=== PATIENT | male | born 1960 | race Caucasian/White ===

== ENCOUNTER → 2024-10-31 10:58 | Outpatient (CLI) | payer OTHER, SELFPAY ==
[2024-10-31 18:53] LABS: Alanine Aminotransferase 54 IU/L (<50); Albumin 5.3 g/dL (3.5-5.0); Albumin Globulin Ratio 1.6 (1.0-2.8); Alkaline Phosphatase 62 U/L (38-126); Aspartate Aminotransferase 42 IU/L (17-59); BUN Creatinine Ratio 21.2 (6-22); Bilirubin Total 2.7 mg/dL (0.2-1.3); Blood Urea Nitrogen 21 mg/dL (9-20); Calcium 10.6 mg/dL (8.4-10.2); Carbon Dioxide 16 mmol/L (22-32); Chloride 104 mmol/L (98-107); Cholesterol 294 mg/dL (140-199); Estimated Glomerular Filt Rate > 60 mL/min (>60); Globulin 3.4 g/dL (1.7-4.1); Glucose 112 mg/dL (70-99); HDL Cholesterol 28 mg/dL (40-60); HEMOLYSIS 21 (0-50); LDL Cholesterol Calculated 234 mg/dL (<100); Potassium 4.8 mmol/L (3.4-5.1); Sodium 138 mmol/L (137-145); Total Protein 8.7 g/dL (6.3-8.2); Triglycerides 159 mg/dL (35-150)
[2024-10-31 18:58] LABS: Add Manual Diff / Slide Review YES; Hematocrit 55.1 % (41-53); Hemoglobin 19.3 g/dL (13.5-17.5); Mean Corpuscular Hemoglobin 30.1 PG (26-34); Platelet Count 350 X10^3/uL (150-400); Red Cell Distribution Width 13.7 % (11.6-14.8); White Blood Cell Count 13.9 X10^3/uL (4.5-11.0)
[2024-10-31 19:05] LABS: Hemoglobin A1C% w Est Avg Glu 5.4 % (4.0-6.0)
[2024-10-31 19:52] LABS: Neutrophils Absolute Manual 9035 /uL (3000-5900); Total Cells Counted 100
[2024-10-31 19:53] LABS: RBC Morphology Normal Morphology
== END ==
PROVIDERS: PCP Family Medicine; Visit Provider Family Medicine
DX: I25.10 Atherosclerotic heart disease of native coronary artery without angina pectoris (principal); I25.2 Old myocardial infarction; I10 Essential (primary) hypertension; Z95.5 Presence of coronary angioplasty implant and graft
CPT/HCPCS: 80053; 80061; 83036; 84443; 85007; 85025

== ENCOUNTER → 2024-11-26 11:51 | Outpatient (CLI) | payer OTHER, SELFPAY ==
[2024-11-26 19:33] LABS: Hematocrit 47.8 % (41-53); Hemoglobin 16.7 g/dL (13.5-17.5); Mean Corpuscular HGB Conc 34.9 % (30-36); Mean Corpuscular Hemoglobin 29.5 PG (26-34); Mean Corpuscular Volume 84.3 fL (80-100); Platelet Count 290 X10^3/uL (150-400)
[2024-11-26 19:41] LABS: HEMOLYSIS < 15 (0-50); Iron 160 ug/dL (49-181)
[2024-11-26 19:43] LABS: Alanine Aminotransferase 58 IU/L (<50); Albumin 4.8 g/dL (3.5-5.0); Albumin Globulin Ratio 1.5 (1.0-2.8); Alkaline Phosphatase 62 U/L (38-126); Globulin 3.1 g/dL (1.7-4.1); HEMOLYSIS < 15 (0-50); Total Protein 7.9 g/dL (6.3-8.2)
[2024-11-26 19:52] LABS: Band Neutrophils Percent 1.0 % (3-7); Basophils Percent Manual 1.0 % (0-1); Eosinophils Percent Manual 10.0 % (2-4); Lymphocytes Percent Manual 31.0 % (25-45); Monocytes Percent Manual 9.0 % (2-11); Neutrophils Absolute Manual 5096 /uL (3000-5900); Segmented Neutrophils Percent 48.0 % (38-70); Total Cells Counted 100
[2024-11-26 19:53] LABS: RBC Morphology Normal Morphology
[2024-11-26 20:14] LABS: Ferritin 204 ng/mL (18-464); Percent Iron Saturation 42 % (20-50); Total Iron Binding Capacity 384 ug/dL (261-462); Transferrin 325 mg/dL (206-381)
[2024-11-28 04:08] LABS: Hepatitis A Antibody IgM Negative (Negative); Hepatitis B Core Antibody IgM Negative (Negative); Hepatitis C Antibody Non Reactive (Non Reactive)
[2024-11-28 09:36] LABS: Calcium 9.6 mg/dL (8.6-10.2); Parathyroid Hormone, Intact 20 pg/mL (15-65)
[2024-11-28 16:36] LABS: Free Kappa Lt Chains, Serum 14.7 mg/L (3.3-19.4); Free Lambda Lt Chains,Serum 14.6 mg/L (5.7-26.3)
[2024-11-29 14:08] LABS: Albumin 4.0 g/dL (2.9-4.4); Alpha-1-Globulin 0.2 g/dL (0.0-0.4); Alpha-2-Globulin 0.8 g/dL (0.4-1.0); Gamma Globulin 1.3 g/dL (0.4-1.8); Immunoglobulin G,Serum 1302 mg/dL (603-1613)
== END ==
PROVIDERS: PCP Family Medicine; Visit Provider Family Medicine
DX: I25.10 Atherosclerotic heart disease of native coronary artery without angina pectoris (principal); I10 Essential (primary) hypertension; I25.2 Old myocardial infarction; K75.9 Inflammatory liver disease, unspecified; D75.1 Secondary polycythemia; D72.821 Monocytosis (symptomatic); D72.828 Other elevated white blood cell count; E83.52 Hypercalcemia; E80.6 Other disorders of bilirubin metabolism; E88.09 Other disorders of plasma-protein metabolism, not elsewhere classified; E78.00 Pure hypercholesterolemia, unspecified
CPT/HCPCS: 80074; 80076; 82310; 82668; 82728; 82784; 83540; 83550; 83883; 83970; 84155; 84165; 85025; 86334

== ENCOUNTER → 2025-05-21 14:21 | Outpatient (CLI) | payer OTHER, MEDICARE, SELFPAY ==
[2025-05-21 18:32] LABS: Hematocrit 51.7 % (41-53); Hemoglobin 17.9 g/dL (13.5-17.5); Mean Corpuscular HGB Conc 34.7 % (30-36); Mean Corpuscular Hemoglobin 29.2 PG (26-34); Mean Corpuscular Volume 84.3 fL (80-100); Platelet Count 335 X10^3/uL (150-400)
[2025-05-21 18:40] LABS: Alanine Aminotransferase 66 IU/L (<50); Albumin 5.3 g/dL (3.5-5.0); Albumin Globulin Ratio 1.6 (1.0-2.8); Alkaline Phosphatase 63 U/L (38-126); Blood Urea Nitrogen 20 mg/dL (9-20); Calcium 10.4 mg/dL (8.4-10.2); Carbon Dioxide 24 mmol/L (22-32); Chloride 106 mmol/L (98-107); Estimated Glomerular Filt Rate > 60 mL/min (>60); Globulin 3.4 g/dL (1.7-4.1); Glucose 132 mg/dL (70-99); HEMOLYSIS 17 (0-50); Potassium 4.1 mmol/L (3.4-5.1); Sodium 143 mmol/L (137-145); Total Protein 8.7 g/dL (6.3-8.2)
[2025-05-21 18:57] LABS: Basophils Percent Manual 1.0 % (0-1); Eosinophils Percent Manual 10.0 % (2-4); Lymphocytes Percent Manual 39.0 % (25-45); Monocytes Percent Manual 7.0 % (2-11); Neutrophils Absolute Manual 5074 /uL (3000-5900); Segmented Neutrophils Percent 43.0 % (38-70); Total Cells Counted 100
[2025-05-21 18:58] LABS: RBC Morphology Normal Morphology
== END ==
PROVIDERS: PCP Family Medicine; Visit Provider Family Medicine
DX: D75.1 Secondary polycythemia (principal); R79.89 Other specified abnormal findings of blood chemistry; E80.6 Other disorders of bilirubin metabolism; K75.9 Inflammatory liver disease, unspecified
CPT/HCPCS: 80053; 82668; 85025